=== PATIENT | female | born 1975 | race Caucasian/White ===

== ENCOUNTER → 2020-12-12 14:40 | Outpatient (CLI) | payer OTHER, SELFPAY ==
--- NOTE | ~2020-12-12 | MM_ITS ---
EXAMINATION: MM screening sarahi BI w mi HISTORY: Screening mammogram TECHNIQUE: Craniocaudal and mediolateral oblique 3-D tomosynthesis images were obtained and synthetic 2-D images were generated. CAD analysis was submitted and interpreted. COMPARISON: 08/01/2014 bilateral diagnostic mammogram 07/25/2014 bilateral digital screening mammogram BREAST PARENCHYMAL COMPOSITION: There are scattered areas of fibroglandular density. FINDINGS: There is no evidence of suspicious mass, calcification, or architectural distortion to sugg est malignancy in either breast. There has been no suspicious interval change. IMPRESSION: 1. No mammographic evidence of malignancy. 2. Recommend routine screening mammography in one year. BI-RADS Category 1: Negative Reviewed, dictated and finalized at location A.
== END ==
PROVIDERS: Visit Provider Nurse Practitioner Obstetrics & Gynecology
DX: Z12.31 Encounter for screening mammogram for malignant neoplasm of breast (principal)
CPT/HCPCS: 77063; 77067

== ENCOUNTER → 2022-03-27 11:19 | Outpatient (CLI) | payer OTHER, SELFPAY ==
--- NOTE | ~2022-03-27 | MM_ITS ---
EXAMINATION: MM screening sarahi BI w mi HISTORY: Screening TECHNIQUE: Craniocaudal and mediolateral oblique 3-D tomosynthesis images were obtained and synthetic 2-D images were generated. CAD analysis was submitted and interpreted. COMPARISON: Comparison to multiple prior studies sequentially, with oldest reviewed study dated 03/2014. BREAST PARENCHYMAL COMPOSITION: Breast composed of scattered areas of fibroglandular density FINDINGS: There is a new focal asymmetry laterally in the right breast on CC view, posterior third. T he left breast is stable without evidence for malignancy. IMPRESSION: 1. New focal asymmetry laterally in the right breast on CC view. 2. Additional mammographic views and possible breast ultrasound are recommended. BI-RADS Category 0: Incomplete: Needs additional imaging evaluation. Reviewed, dictated and finalized at location A. ROLLER IMPRESSION: 1. New focal asymmetry laterally in the right breast on CC view. 2. Additional mammographic views and possible breast ultrasound are recommended . BI-RADS Category 0: Incomplete: Needs additional imaging evaluation.
== END ==
PROVIDERS: PCP Nurse Practitioner Obstetrics & Gynecology; Visit Provider Nurse Practitioner Obstetrics & Gynecology
DX: Z12.31 Encounter for screening mammogram for malignant neoplasm of breast (principal)
CPT/HCPCS: 77063; 77067

== ENCOUNTER → 2022-04-22 09:44 | Outpatient (CLI) | payer OTHER, SELFPAY ==
--- NOTE | ~2022-04-22 | MMUS_ITS ---
EXAMINATION: MM diagnostic sarahi RT w mi, US breast RT limited HISTORY: New mammographic asymmetry reported in posterior outer right breast on 03/27/22 screening mamm ogram TECHNIQUE: Additional 3-D tomosynthesis images of right breast were performed and synthetic 2-D image s were generated. Rolled medial CC and rolled lateral CC right breast views were performed. CAD anal ysis was submitted and interpreted. High resolution upper outer and lower outer quadrant right breast ultrasound was performed. COMPARISON: 03/27/2022 bilateral screening mammogram FINDINGS: MAMMOGRAPHIC FINDINGS: The asymmetry reported in the posterior outer right breast on CC screening view of 03/27/2022 is not re produced on rolled medial and lateral CC views and is likely composite shadowing of overlapping angelita a. ULTRASOUND: No suspicious mass or shadowing of the upper outer or lower quadrants of the right breast is detected . No other significant sonographic abnormality is noted. IMPRESSION: 1. No evidence of malignancy 2. Routine annual mammographic screening is recommended. BIRADS Category 1: Negative Reviewed, dictated and finalized at location A. CLINICIAN IMPRESSION: 1. No evidence of malignancy 2. Routine annual mammographic screening is recommended. BIRADS Category 1: Negative
== END ==
PROVIDERS: PCP Emergency Medicine; Visit Provider Nurse Practitioner Obstetrics & Gynecology
DX: R92.8 Other abnormal and inconclusive findings on diagnostic imaging of breast (principal)
CPT/HCPCS: 76642; 77061; 77065; G0279